=== PATIENT | female | born 1995 | race Caucasian/White ===

== ENCOUNTER 2017-02-09 18:50 | Emergency (ER) | payer BC ==
[~2017-02-09] VITALS: Ht 167.6 cm; Wt 56.6 kg
[2017-02-09 19:27] VITALS: TEMP 36.8; Ht 167.6 cm; Wt 56.6 kg
[2017-02-09] MEDS ORDERED: KETOROLAC TROMETHAMINE 30 MG/ML VIAL IV STA (20:58)
[2017-02-09 21:40] LABS: BASO % 0.2 %; BASO ABS # 0.02 K/uL (0-0.2); COMPLETE YES; EOS % 1.4 %; HEMATOCRIT 40.6 % (37-47); IG% 0.2 %; LYMPH % 29.8 %; LYMPH ABS # 2.73 K/uL (1.2-3.4); MEAN CELL VOLUME 95.1 fL (80-100); MEAN CORPUSCULAR HEMOGLOBIN 32.3 pg (25-34); MEAN PLATELET VOLUME 9.8 fL (7.4-10.4); MONO % 5.5 %; NEUT % 62.9 %; PLATELET COUNT 308 K/uL (130-400); RED BLOOD COUNT 4.27 M/uL (4.2-5.4); WHITE BLOOD COUNT 9.16 K/uL (4.8-10.8)
[2017-02-09 21:47] LABS: MANUAL MICROSCOPIC REQUIRED? NO; REVIEW REQ? NO; URINE APPEARANCE CLEAR (CLEAR); URINE BILIRUBIN NEG (NEG); URINE COLOR YELLOW; URINE NITRITE NEG (NEG); URINE SPECIFIC GRAVITY 1.016 (1.000-1.030); UROBILINOGEN NEG (NEG); ZZUR CULT IF INDIC CLEAN CATCH NO
[2017-02-09 21:53] LABS: CALCIUM 9.7 mg/dl (8.5-10.1); CREATININE 1.05 mg/dl (0.60-1.20); POTASSIUM 3.8 mmol/L (3.5-5.1)
--- NOTE | 2017-02-09 21:54 | DIAGNOSTIC IMAGING REPORT ---
EXAMINATION: PELVIC ULTRASOUND (transabdominal and endovaginal scanning CLINICAL HISTORY: Pelvic pain COMPARISON STUDY: None FINDINGS: The uterus measured 5.9 x 3 x 4 cm. The endometrial stripe measured 5 mm. The right ovary measured 30 x 12 x 19 mm. The left ovary measured 33 x 17 x 20 mm. There is no ultrasonographic evidence of ovarian torsion. It should be noted that ovarian torsion can be present with normal Doppler ultrasonographic findings. There is a small amount of free pelvic fluid, likely physiologic. IMPRESSION: Small amount of free pelvic fluid, likely physiologic. Otherwise normal pelvic ultrasound. Electronically signed by: Osvaldo Rankin M.D. 02/09/2017 9:53 PM Dictated Date/Time: 02/09/2017 9:51 PM
[2017-02-09 21:56] LABS: ALB/GLOB RATIO 1.2 (0.9-2)
[2017-02-09 22:01] LABS: PREG INTERNAL NEGATIVE QC NEG CLEAR BACKGROUND; PREG INTERNAL POSITIVE QC POS CONTROL LINE
--- NOTE | 2017-02-09 22:22 | EMERGENCY ROOM VISIT NOTE ---
History Report prepared by Christiana: Christine Costa Under the Supervision of: Dr. Elian Carpenter M.D. First contact with patient: 20:56 Chief Complaint: ABDOMINAL PAIN Stated Complaint: ABD PAIN Nursing Triage Summary: Patient ambulatory to triage, states "I have really bad stomach pains. I used to get cysts and I think it could be one. The pain started last night and went away. It came back again tonight. The pain is only on my left side." Patient denies any vaginal bleeding or discharge. Patient denies any urinary symptoms. No changes in bowel pattern. History of Present Illness The patient is a 21 year old female who presents to the Emergency Room with complaints of intermittent abdominal pain beginning last night. The patient states that she has a history of ovarian cysts and is concerned today that she may have another. She reports that last night she began to have LLQ pain and it resolved overnight and came back again today. She rates her pain as an 8/10 in severity. The patient complains of bumps in the LLQ that she can feel. She denies any constipation, diarrhea, changes in bowel movements, and urinary symptoms. The patient states that she is on a control pill and does not get her period with this pill. Source of History: patient Onset: last night Position: abdomen (LLQ) Symptom Intensity: 8/10 Timing: intermittent Associated Symptoms: No diarrhea, No urinary symptoms Review of Systems See HPI for pertinent positives & negatives. A total of 10 systems reviewed and were otherwise negative. Past Medical & Surgical Medical Problems: (1) Ovarian cyst Family History No pertinent family history stated. Social History Smoking Status: Never Smoker Marital Status: single Housing Status: lives with roommate Occupation Status: [employer] student Allergies Coded Allergies: Sulfa Antibiotics (Verified Allergy, Mild, Rash, 02/09/17) Physical Exam Vital Signs Date Time Temp Pulse Resp B/P (MAP) Pulse Ox O2 Delivery O2 Flow Rate FiO2 02/09/17 22:29 55 18 105/74 97 02/09/17 19:27 36.8 53 16 124/86 100 Room Air Physical Exam GENERAL: Patient is in no acute distress. HEENT: No acute trauma, normocephalic atraumatic, mucous membranes moist, no nasal congestion, no scleral icterus. NECK: No stridor, no adenopathy, no meningismus, trachea is midline. LUNGS: Clear to auscultation bilaterally, no wheeze, no rhonchi, breath sounds equal. HEART: Without murmurs gallops or rubs, regular rate and rhythm. ABDOMEN: Soft, moderately tender in the LLQ/pelvis, bowel sounds positive, no hernias, no peritonitis. EXTREMITIES: No cyanosis or edema, full range of motion of all the joints without pain or difficulty, no signs for acute trauma. NEUROLOGIC: Oriented x 3, no acute motor or sensory deficits, no focal weakness. SKIN: No rash, no jaundice, no diaphoresis. Medical Decision & Procedures ER Provider Diagnostic Interpretation: Radiology results as stated below per my review and radiologist interpretation: EXAMINATION: PELVIC ULTRASOUND (transabdominal and endovaginal scanning FINDINGS: The uterus measured 5.9 x 3 x 4 cm. The endometrial stripe measured 5 mm. The right ovary measured 30 x 12 x 19 mm. The left ovary measured 33 x 17 x 20 mm. There is no ultrasonographic evidence of ovarian torsion. It should be noted that ovarian torsion can be present with normal Doppler ultrasonographic findings. There is a small amount of free pelvic fluid, likely physiologic. IMPRESSION: Small amount of free pelvic fluid, likely physiologic. Otherwise normal pelvic ultrasound. Electronically signed by: Osvaldo Rankin M.D. 02/09/2017 9:53 PM Dictated Date/Time: 02/09/2017 9:51 PM Laboratory Results 02/09/17 21:23 Red Blood Count 4.27, Mean Corpuscular Volume 95.1, Mean Corpuscular Hemoglobin 32.3, Mean Corpuscular Hemoglobin Concent 34.0, Mean Platelet Volume 9.8, Neutrophils (%) (Auto) 62.9, Lymphocytes (%) (Auto) 29.8, Monocytes (%) (Auto) 5.5, Eosinophils (%) (Auto) 1.4, Basophils (%) (Auto) 0.2, Neutrophils # (Auto) 5.76, Lymphocytes # (Auto) 2.73, Monocytes # (Auto) 0.50, Eosinophils # (Auto) 0.13, Basophils # (Auto) 0.02 02/09/17 21:23 Test 02/09/17 21:10 02/09/17 21:23 Urine Color YELLOW Urine Appearance CLEAR (CLEAR) Urine pH 7.0 (4.5-7.5) Urine Specific [place] 1.016 (1.000-1.030) Urine Protein NEG (NEG) Urine Glucose (UA) NEG (NEG) Urine Ketones TRACE (NEG) Urine Occult Blood NEG (NEG) Urine Nitrite NEG (NEG) Urine Bilirubin NEG (NEG) Urine Urobilinogen NEG (NEG) Urine Leukocyte Esterase NEG (NEG) White Blood Count 9.16 K/uL (4.8-10.8) Red Blood Count 4.27 M/uL (4.2-5.4) Hemoglobin 13.8 g/dL (12.0-16.0) Hematocrit 40.6 % (37-47) Mean Corpuscular Volume 95.1 fL (80-100) Mean Corpuscular Hemoglobin 32.3 pg (25-34) Mean Corpuscular Hemoglobin Concent 34.0 g/dl (32-36) Platelet Count 308 K/uL (130-400) Mean Platelet Volume 9.8 fL (7.4-10.4) Neutrophils (%) (Auto) 62.9 % Lymphocytes (%) (Auto) 29.8 % Monocytes (%) (Auto) 5.5 % Eosinophils (%) (Auto) 1.4 % Basophils (%) (Auto) 0.2 % Neutrophils # (Auto) 5.76 K/uL (1.4-6.5) Lymphocytes # (Auto) 2.73 K/uL (1.2-3.4) Monocytes # (Auto) 0.50 K/uL (0.11-0.59) Eosinophils # (Auto) 0.13 K/uL (0-0.5) Basophils # (Auto) 0.02 K/uL (0-0.2) RDW Standard Deviation 45.1 fL (36.4-46.3) RDW Coefficient of Variation 13.0 % (11.5-14.5) Immature Granulocyte % (Auto) 0.2 % Immature Granulocyte # (Auto) 0.02 K/uL (0.00-0.02) Anion Gap 9.0 mmol/L (3-11) Est Creatinine Clear Calc Drug Dose 76.4 ml/min Estimated GFR () 88.5 Estimated GFR (Non- 76.4 BUN/Creatinine Ratio 12.0 (10-20) Calcium Level 9.7 mg/dl (8.5-10.1) Total Bilirubin 1.8 mg/dl (0.2-1) Aspartate Amino Transf (AST/SGOT) 21 U/L (15-37) Alanine Aminotransferase (ALT/SGPT) 18 U/L (12-78) Alkaline Phosphatase 51 U/L (45-117) Total Protein 8.1 gm/dl (6.4-8.2) Albumin 4.5 gm/dl (3.4-5.0) Globulin 3.6 gm/dl (2.5-4.0) Albumin/Globulin Ratio 1.2 (0.9-2) Lipase 97 U/L (73-393) Human Chorionic Gonadotropin, Qual NEG (NEG) Laboratory results reviewed by me. Medications Administered Medications (Trade) Dose Ordered Sig/Jemima Route Start Time Stop Time Status Last Admin Dose Admin Ketorolac Tromethamine (Toradol Inj) 30 mg NOW STAT IV 02/09/17 20:58 02/09/17 21:06 DC 02/09/17 21:18 30 MG ED Course 2055: The patient was evaluated in room B9. A complete history and physical exam was performed. 2057: Toradol Inj 30mg IV. 2222: I reevaluated and updated the patient. 2228: Reevaluated the patient. Discussed results and discharge instructions: She verbalized understanding and agreement. The patient is ready for discharge. Medical Decision The patient is a 21 year old female who presents to the ED with complaints of LLQ abdominal pain. Differential diagnoses considered include ovarian cyst, ruptured ovarian cyst, ovarian torsion, constipation, hernia, UTI, , bowel obstruction, musculoskeletal pain. There is no leukocytosis or concerning anemia. No significant electrolyte abnormality, kidney failure, hepatitis or pancreatitis. testing is negative. Urinalysis does not show evidence for infection. Pelvic ultrasound does not show any evidence for ovarian torsion or large ovarian cyst. Some free pelvic fluid was seen. On exam, the patient was not toxic or febrile. There was no obvious hernia, there was no peritonitis. The patient denies any vaginal discharge or vaginal complaints. Patient has a history of ovarian cyst. Her pain today felt similar to previous cysts. Certainly, she may have ruptured an ovarian cyst this evening. I do think the patient is stable for discharge. During her ER stay, she received IV Toradol for pain. She will be discharged with [id number] Motrin and Tylenol. She will follow with OB. If things are worsening, she can return. Medication Reconcilliation Current Medication List: was personally reviewed by me Blood Pressure Screening Patient's blood pressure: Normal blood pressure Blood pressure disposition: Did not require urgent referral Impression Primary Impression: Pelvic pain Scribe Attestation The scribe's documentation has been prepared under my direction and personally reviewed by me in its entirety. I confirm that the note above accurately reflects all work, treatment, procedures, and medical decision making performed by me. Departure Information Dispostion Home / Self-Care Referrals Ulices López D.O. (PCP) Patient Instructions My [facility] Additional Instructions motrin 3-4 tab every 8 hours for pain may use tylenol as well for pain control heat to the area may help talk with ob about today's visit return for uncontrolled pain, vomiting or fever
[2017-02-09 22:29] VITALS: BP 105/74; PULSE 55; O2SAT 97
== END 2017-02-09 22:30 | disposition home or self-care (01) ==
LOC: C.EDB 18:51
DX: R10.2 Pelvic and perineal pain (principal); N83.209 Unspecified ovarian cyst, unspecified side; Z88.2 Allergy status to sulfonamides

== ENCOUNTER 2017-03-28 00:12 | Emergency (ER) | payer BC ==
[~2017-03-28] VITALS: Ht 180.3 cm; Wt 59.9 kg
[2017-03-28 00:19] VITALS: TEMP 36.5; Ht 180.3 cm; Wt 59.9 kg
--- NOTE | 2017-03-28 00:22 | EMERGENCY ROOM VISIT NOTE ---
History Report prepared by Christiana: Néstor Feng Under the Supervision of: Dr. Malena Christiansen D.O. First contact with patient: 00:15 Stated Complaint: ALCOHOL History of Present Illness The patient is a 21 year old female who presents to the Emergency Room via EMS with complaints of an alcohol overdose that began recently. EMS states that the patient drank hard liquor but does not know how much. EMS adds that the patient was found wondering alone. Patient denies any body aches. She denies using drug recently. She denies any history of heart problems or seizures. Patient states that she lives in [place], [place]. Source of History: patient Onset: Recent Position: other (Global) Modifying Factors (Relieving): other (None) Note: Patient denies body aches. Review of Systems See HPI for pertinent positives & negatives. A total of 10 systems reviewed and were otherwise negative. Past Medical & Surgical Medical Problems: (1) Ovarian cyst Family History No pertinent family medical history. Social History Smoking Status: Never Smoker Marital Status: single Housing Status: lives with roommate Occupation Status: [employer] student Current/Historical Medications No Active Prescriptions or Reported Meds Allergies Coded Allergies: Sulfa Antibiotics (Verified Allergy, Mild, Rash, 03/28/17) Physical Exam Vital Signs Date Time Temp Pulse Resp B/P (MAP) Pulse Ox O2 Delivery O2 Flow Rate FiO2 03/28/17 03:46 77 16 103/71 97 Room Air 03/28/17 02:53 79 18 108/74 98 Room Air 03/28/17 01:07 92 18 114/82 97 Room Air 03/28/17 00:19 36.5 100 20 127/81 99 Room Air Physical Exam General: Tearful, smells of alcohol and cooperative HEENT: Head - normocephalic and atraumatic Pupils are 7mm, equal, round, and slow to react to light. Extraocular eye muscles are intact, and sclera are anicteric. Nose - moist nasal mucosa without discharge. Mouth - moist buccal mucosa. Oropharynx is nonerythematous and there is no tonsillar exudate or edema noted. Neck: Supple; no JVD, nuchal rigidity, cervical lymphadenopathy. Heart: Tachycardic rate and rhythm. There is a normal S1 and S2 with no murmurs , clicks, or gallops appreciated. Lungs: Clear to auscultation bilaterally with no wheezes, rales, or rhonchi. Abdomen: Soft, completely nontender, nondistended, with good bowel sounds. There are no palpable pulsatile masses or hepatosplenomegaly. There is no guarding, rigidity, or rebound noted. Extremities: No evidence of cyanosis, clubbing, or edema. There are easily palpable peripheral pulses. Skin: warm and dry with good turgor and no rashes. Medical Decision & Procedures Laboratory Results 03/28/17 00:30 Test 03/28/17 00:30 Anion Gap 6.0 mmol/L (3-11) Est Creatinine Clear Calc Drug Dose 87.5 ml/min Estimated GFR () 97.4 Estimated GFR (Non- 84.1 BUN/Creatinine Ratio 7.8 (10-20) Calcium Level 8.7 mg/dl (8.5-10.1) Ethyl Alcohol mg/dL 299.0 mg/dl (0-3) Laboratory results per my review. ED Course 0008: The patient was evaluated in room B12B. A complete history and physical examination were performed. Nursing notes and previous electronic medical records were reviewed. The patient was placed on the sales representative sales manager and pulse oximeter. Laboratory studies were drawn as above. 0350: Upon reevaluation, the patient is awake and alert. She states she feels fine and was able to eat pizza. I discussed findings and results with her. She verbalized agreement of the treatment plan. She was discharged home. Medical Decision The patient is a 21 year old female who presents to the ED with a recent alcohol overdose. Differential diagnosis includes alcohol overdose, drug intoxication, hypoglycemia, and head injury. Lab results show normal renal function and glucose, alcohol = 299. This is a 21-year-old female patient who was brought to the emergency department after consuming too much alcohol. Laboratory studies were normal except for alcohol. The patient was cooperative throughout her stay here in the emergency department. She was able to rest and and talk with friends and eat pizza without any difficulty. She was encouraged to avoid such excessive alcohol use in the future. Medication Reconcilliation Current Medication List: was personally reviewed by me Blood Pressure Screening Patient's blood pressure: Normal blood pressure Blood pressure disposition: Did not require urgent referral Impression Primary Impression: Alcohol overdose Scribe Attestation The scribe's documentation has been prepared under my direction and personally reviewed by me in its entirety. I confirm that the note above accurately reflects all work, treatment, procedures, and medical decision making performed by me. Departure Information Dispostion Home / Self-Care Prescriptions No Active Prescriptions or Reported Meds Referrals Ulices López D.O. (PCP) Forms HOME CARE DOCUMENTATION FORM, IMPORTANT VISIT INFORMATION Patient Instructions ED Overdose Alcohol, [facility]: [employer] Students and Alcohol Related Visits, My [facility] Additional Instructions Avoid such excessive alcohol use in the future Rest. anna a bland diet and plenty of clear liquids Use tylenol for headaches Problem Qualifiers Primary Impression: Alcohol overdose Encounter type: initial encounter Injury intent: accidental or unintentional Qualified Codes: T51.91XA - Toxic effect of unspecified alcohol , accidental (unintentional), initial encounter
[2017-03-28 01:03] LABS: CALCIUM 8.7 mg/dl (8.5-10.1); CREATININE 0.97 mg/dl (0.60-1.20); POTASSIUM 3.6 mmol/L (3.5-5.1)
[2017-03-28 03:46] VITALS: BP 103/71; PULSE 77; O2SAT 97
== END 2017-03-28 03:55 | disposition home or self-care (01) ==
LOC: EDBD 00:12 → C.EDB 00:14
DX: F10.929 Alcohol use, unspecified with intoxication, unspecified (principal); Y90.8 Blood alcohol level of 240 mg/100 ml or more; R00.0 Tachycardia, unspecified

== ENCOUNTER 2017-11-03 18:35 | Emergency (ER) | payer BC ==
[~2017-11-03] VITALS: Ht 167.6 cm; Wt 57.0 kg
[2017-11-03 18:37] VITALS: TEMP 37.1; Ht 167.6 cm; Wt 57.0 kg
[2017-11-03] MEDS ORDERED: ONDANSETRON INJ 2 MG/ML 2 ML VIAL IV STA (18:51)
[2017-11-03] MEDS ORDERED: SODIUM CHLORIDE 0.9% 1000ML 2,000 ML IV STA (18:51)
[2017-11-03] MEDS ORDERED: KETOROLAC TROMETHAMINE 30 MG/ML VIAL IV STA (18:51)
[2017-11-03] MEDS ORDERED: OPTIRAY 320 IV PRN (19:00)
[2017-11-03 19:45] LABS: BASO % 0.4 %; BASO ABS # 0.03 K/uL (0-0.2); EOS % 2.6 %; HEMOGLOBIN 15.1 g/dL (12.0-16.0); IG# 0.02 K/uL (0.00-0.02); LYMPH % 34.2 %; LYMPH ABS # 2.61 K/uL (1.2-3.4); MEAN CELL VOLUME 94.6 fL (80-100); MEAN CORPUSCULAR HEMOGLOBIN 32.5 pg (25-34); MEAN CORPUSCULAR HGB CONC 34.3 g/dl (32-36); MONO % 6.7 %; MONO ABS # 0.51 K/uL (0.11-0.59); NEUT % 55.8 %; NEUT ABS # 4.27 K/uL (1.4-6.5); PLATELET COUNT 360 K/uL (130-400); RED CELL DISTRIBUTION WIDTH CV 13.6 % (11.5-14.5); RED CELL DISTRIBUTION WIDTH SD 46.6 fL (36.4-46.3); WHITE BLOOD COUNT 7.64 K/uL (4.8-10.8)
[2017-11-03 20:36] LABS: ALBUMIN 4.7 gm/dl (3.4-5.0); CREATININE 1.05 mg/dl (0.60-1.20); TOTAL PROTEIN 9.3 gm/dl (6.4-8.2)
[2017-11-03 21:21] LABS: POTASSIUM 4.1 mmol/L (3.5-5.1)
--- NOTE | 2017-11-03 21:33 | DIAGNOSTIC IMAGING REPORT ---
CT ABD/PELVIS IV CONTRAST ONLY CLINICAL HISTORY: DIFFUSE ABD PAIN COMPARISON STUDY: Pelvic ultrasound dated 02/09/2017 TECHNIQUE: Following the IV administration of 113 mL of Optiray-320, CT scan of the abdomen and pelvis was performed from the lung bases to the proximal femurs. Images are reviewed in the axial, sagittal, and coronal planes. IV contrast was administered without complication. A dose lowering technique was utilized adhering to the principles of ALARA. CT DOSE: 273.09 mGy.cm FINDINGS: Lower chest: The heart is normal in size and configuration, without pericardial effusion. The lung bases and pleural spaces are clear. Liver: There is minimal periportal edema, likely secondary to hydration Gallbladder: Unremarkable. Spleen: Normal in size and attenuation. Pancreas: Unremarkable. Adrenal glands: Unremarkable. Kidneys: There is symmetric renal cortical enhancement. The kidneys are normal in size without hydronephrosis. Bowel: There are no transition zones indicate bowel obstruction. There are multiple fluid-filled small bowel and colonic loops. This finding can be seen in an enteritis. There is no acute diverticulitis. The appendix is not visualized with certainty this examination performed without the benefit of oral contrast. Peritoneum: There is a small amount of free pelvic fluid. Vasculature: The abdominal aorta is normal in course and caliber. Adenopathy: None. Pelvic viscera: The bladder, and pelvic viscera are unremarkable. Skeletal structures: No destructive osseous lesions are seen. IMPRESSION: 1. No evidence of bowel obstruction. No evidence of free air 2. Fluid-filled colonic and small bowel loops with air-fluid levels. Likely diagnostic considerations include a generalized ileus versus enteritis. 3. Small amount of free pelvic fluid Electronically signed by: Osvaldo Rankin M.D. 11/03/2017 9:32 PM Dictated Date/Time: 11/03/2017 9:26 PM
[2017-11-03 22:10] VITALS: BP 100/62; PULSE 51; O2SAT 100
--- NOTE | 2017-11-03 22:30 | EMERGENCY ROOM VISIT NOTE ---
History Report prepared by Christiana: Kassy Weems Under the Supervision of: Dr. Marshal Klein D.O. 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 She states when her pain first began, it was intermittent, however over the past week it has been constant. She describes her pain as sharp and notes nothing makes her pain better or worse. She reports yesterday she went to [facility] and had x-rays done which showed extreme constipation, so she took some laxatives but it did not alleviate her pain. Her last BM before the laxatives was 2 weeks but she was passing very small movements during this time and her last BM after the laxatives was last night. Pt denies headache, change in vision, fevers, chest pain, shortness of breath, nausea, vomiting, diarrhea, pain with urination, melena, vaginal bleeding or discharge. 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 A total of 10 systems reviewed and were otherwise negative. Past Medical & Surgical Medical Problems: (1) Ovarian cyst Family History No pertinent family history Social History Smoking Status: Never Smoker Marital Status: single Housing Status: lives with roommate Occupation Status: [employer] student Current/Historical Medications No Active Prescriptions or Reported Meds Allergies Coded Allergies: Sulfa Antibiotics (Verified Allergy, Mild, Rash, 03/28/17) Physical Exam Vital Signs Date Time Temp Pulse Resp B/P (MAP) Pulse Ox O2 Delivery O2 Flow Rate FiO2 11/03/17 22:10 51 18 100/62 100 11/03/17 21:48 51 18 100/62 100 Room Air 11/03/17 20:01 50 18 104/74 100 Room Air 11/03/17 18:37 37.1 77 20 114/82 100 Room Air Physical Exam GENERAL: Sitting up in bed, alert, well appearing, well nourished, no distress, non-toxic EYE EXAM: normal conjunctiva. OROPHARYNX: no exudate, no erythema, lips, buccal mucosa, and tongue normal and mucous membranes are moist NECK: supple, no nuchal rigidity, no adenopathy, non-tender LUNGS: Clear to auscultation. Normal chest wall mechanics HEART: no murmurs, S1 normal and S2 normal ABDOMEN: abdomen soft, faint diffuse tenderness, normo-active bowel sounds, no masses, no rebound or guarding. BACK: Back is symmetrical on inspection and there is no deformity, no midline tenderness, no CVA tenderness. SKIN: no rashes and no bruising UPPER EXTREMITIES: upper extremities are grossly normal. LOWER EXTREMITIES: No pitting edema. Calves are equal bilaterally NEURO EXAM: Normal sensorium, cranial nerves II-XII grossly intact, normal speech, no gross weakness of arms, no gross weakness of legs. Medical Decision & Procedures ER Provider Diagnostic Interpretation: Radiology results as stated below per my review and the radiologist's interpretation: CT ABD/PELVIS IV CONTRAST ONLY CLINICAL HISTORY: DIFFUSE ABD PAIN COMPARISON STUDY: Pelvic ultrasound dated 02/09/2017 TECHNIQUE: Following the IV administration of 113 mL of Optiray-320, CT scan of the abdomen and pelvis was performed from the lung bases to the proximal femurs. Images are reviewed in the axial, sagittal, and coronal planes. IV contrast was administered without complication. A dose lowering technique was utilized adhering to the principles of ALARA. CT DOSE: 273.09 mGy.cm FINDINGS: Lower chest: The heart is normal in size and configuration, without pericardial effusion. The lung bases and pleural spaces are clear. Liver: There is minimal periportal edema, likely secondary to hydration Gallbladder: Unremarkable. Spleen: Normal in size and attenuation. Pancreas: Unremarkable. Adrenal glands: Unremarkable. Kidneys: There is symmetric renal cortical enhancement. The kidneys are normal in size without hydronephrosis. Bowel: There are no transition zones indicate bowel obstruction. There are multiple fluid-filled small bowel and colonic loops. This finding can be seen in an enteritis. There is no acute diverticulitis. The appendix is not visualized with certainty this examination performed without the benefit of oral contrast. Peritoneum: There is a small amount of free pelvic fluid. Vasculature: The abdominal aorta is normal in course and caliber. Adenopathy: None. Pelvic viscera: The bladder, and pelvic viscera are unremarkable. Skeletal structures: No destructive osseous lesions are seen. IMPRESSION: 1. No evidence of bowel obstruction. No evidence of free air 2. Fluid-filled colonic and small bowel loops with air-fluid levels. Likely diagnostic considerations include a generalized ileus versus enteritis. 3. Small amount of free pelvic fluid Electronically signed by: Osvaldo Rankin M.D. 11/03/2017 9:32 PM Laboratory Results 11/03/17 19:12 Red Blood Count 4.65, Mean Corpuscular Volume 94.6, Mean Corpuscular Hemoglobin 32.5, Mean Corpuscular Hemoglobin Concent 34.3, Mean Platelet Volume 10.0, Neutrophils (%) (Auto) 55.8, Lymphocytes (%) (Auto) 34.2, Monocytes (%) (Auto) 6.7, Eosinophils (%) (Auto) 2.6, Basophils (%) (Auto) 0.4, Neutrophils # (Auto) 4.27, Lymphocytes # (Auto) 2.61, Monocytes # (Auto) 0.51, Eosinophils # (Auto) 0.20, Basophils # (Auto) 0.03 11/03/17 19:12 11/03/17 20:48 Test 11/03/17 19:10 11/03/17 19:12 11/03/17 20:48 Urine Color YELLOW Urine Appearance CLEAR (CLEAR) Urine pH 7.5 (4.5-7.5) Urine Specific [place] 1.009 (1.000-1.030) Urine Protein NEG (NEG) Urine Glucose (UA) NEG (NEG) Urine Ketones NEG (NEG) Urine Occult Blood NEG (NEG) Urine Nitrite NEG (NEG) Urine Bilirubin NEG (NEG) Urine Urobilinogen NEG (NEG) Urine Leukocyte Esterase TRACE (NEG) Urine WBC (Auto) 1-5 /hpf (0-5) Urine RBC (Auto) 0-4 /hpf (0-4) Urine Hyaline Casts (Auto) 0 /lpf (0-5) Urine Epithelial Cells (Auto) 10-20 /lpf (0-5) Urine Bacteria (Auto) NEG (NEG) Urine Test NEG (NEG) White Blood Count 7.64 K/uL (4.8-10.8) Red Blood Count 4.65 M/uL (4.2-5.4) Hemoglobin 15.1 g/dL (12.0-16.0) Hematocrit 44.0 % (37-47) Mean Corpuscular Volume 94.6 fL (80-100) Mean Corpuscular Hemoglobin 32.5 pg (25-34) Mean Corpuscular Hemoglobin Concent 34.3 g/dl (32-36) Platelet Count 360 K/uL (130-400) Mean Platelet Volume 10.0 fL (7.4-10.4) Neutrophils (%) (Auto) 55.8 % Lymphocytes (%) (Auto) 34.2 % Monocytes (%) (Auto) 6.7 % Eosinophils (%) (Auto) 2.6 % Basophils (%) (Auto) 0.4 % Neutrophils # (Auto) 4.27 K/uL (1.4-6.5) Lymphocytes # (Auto) 2.61 K/uL (1.2-3.4) Monocytes # (Auto) 0.51 K/uL (0.11-0.59) Eosinophils # (Auto) 0.20 K/uL (0-0.5) Basophils # (Auto) 0.03 K/uL (0-0.2) RDW Standard Deviation 46.6 fL (36.4-46.3) RDW Coefficient of Variation 13.6 % (11.5-14.5) Immature Granulocyte % (Auto) 0.3 % Immature Granulocyte # (Auto) 0.02 K/uL (0.00-0.02) Anion Gap 8.0 mmol/L (3-11) Est Creatinine Clear Calc Drug Dose 76.3 ml/min Estimated GFR () 87.9 Estimated GFR (Non- 75.9 BUN/Creatinine Ratio 7.3 (10-20) Calcium Level 10.0 mg/dl (8.5-10.1) Total Bilirubin 1.5 mg/dl (0.2-1) Alanine Aminotransferase (ALT/SGPT) 24 U/L (12-78) Alkaline Phosphatase 42 U/L (45-117) Total Protein 9.3 gm/dl (6.4-8.2) Albumin 4.7 gm/dl (3.4-5.0) Lipase 102 U/L (73-393) Direct Bilirubin mg/dl (0-0.2) Aspartate Amino Transf (AST/SGOT) 18 U/L (15-37) Chemistry Specimen Hemolysis Laboratory results per my review. Medications Administered Medications (Trade) Dose Ordered Sig/Jemima Route Start Time Stop Time Status Last Admin Dose Admin Sodium Chloride 2,000 ml @ 999 mls/hr Q2H1M STAT IV 11/03/17 18:51 11/03/17 20:51 DC 11/03/17 19:18 999 MLS/HR Ondansetron HCl (Zofran Inj) 4 mg NOW STAT IV 11/03/17 18:51 11/03/17 18:52 DC 11/03/17 19:18 4 MG Ketorolac Tromethamine (Toradol Inj) 30 mg NOW STAT IV 11/03/17 18:51 11/03/17 18:52 DC 11/03/17 19:18 30 MG ED Course ED COURSE: Vital signs were reviewed and showed normotensive The patients medical record was reviewed The above diagnostic studies were performed and reviewed. ED treatments and interventions as stated above. 1840: The patient was evaluated in room C11. A complete history and physical examination was performed. 1850: Ordered Toradol Inj 30 mg IV, Zofran Inj 4 mg IV, Sodium Chloride 2000 ml @ 999 mls/hr IV 2158: Upon reevaluation, the patient is feeling better. I discussed my findings with the patient and she understands and agrees with the treatment plan. Based on the patients age, coexisting illnesses, exam and lab findings the decision to treat as an outpatient was made. The patient remained stable while under my care. The patient appeared well at the time of discharge. Medical Decision Differential diagnoses includes but is not limited to gastritis, peptic ulcer disease, GERD, gallbladder disease, pancreatitis, small bowel obstruction, acute coronary syndrome, pericarditis, ischemic bowel, irritable bowel disease, irritable bowel syndrome, appendicitis, diverticulitis, malignancy, hernia, urinary tract infection, torsion, [/ectopic (if female)], perforation, trauma, infectious. Patient is a 22-year-old who presents the ER for diffuse abdominal pain. She notes she has been having very irregular bowel movements per she notes her last bowel movement was close to 2 weeks ago although she has had small hard bowel movements. Her abdominal exam is completely benign. CBC along with BMP, LFTs, bilirubin and lipase was remarkable for a bilirubin 1.5. UA was negative. was negative. CT abdomen pelvis shows questionable ileus. Patient did take a Dulcolax and had a small bowel movement. With her unremarkable workup and belly pain did recommend MiraLAX bowel prep. Patient was discharged to follow-up with PCP as an outpatient. Discussed with Pt concerning signs and symptoms to watch out for. Pt was instructed to follow up with their PCP and discussed with the patient their option to return to the ED at anytime for persistent or worsening symptoms. The appropriate anticipatory guidance and out- patient management, including indications for return to the emergency department , were explained at length to the patient and understood. Medication Reconcilliation Current Medication List: was personally reviewed by me Blood Pressure Screening Patient's blood pressure: Normal blood pressure Blood pressure disposition: Did not require urgent referral Impression Primary Impression: Abdominal pain Scribe Attestation The scribe's documentation has been prepared under my direction and personally reviewed by me in its entirety. I confirm that the note above accurately reflects all work, treatment, procedures, and medical decision making performed by me. Departure Information Dispostion Home / Self-Care Prescriptions No Active Prescriptions or Reported Meds Referrals Ulices López D.O. (PCP) Forms HOME CARE DOCUMENTATION FORM, IMPORTANT VISIT INFORMATION Patient Instructions [facility] Additional Instructions Please follow up with your primary care doctor or if you are a student, [facility] with in the next 24 hours. Any worsening of your symptoms, please return to the ED immediately. This includes any fevers greater than 100.4, worsening pain, chest pain, shortness breath, persistent nausea, vomiting, unable to eat or drink, or any other concerning signs or symptoms from your standpoint. Please take 250 g bottle of MiraLAX and mixed with 64 ounces of Gatorade. Please drink 8 ounces every 15 minutes until he started having bowel movements. At this time she will have loose watery stools. If you go through the whole bottle you can repeat this once. Problem Qualifiers Primary Impression: Abdominal pain Abdominal location: unspecified location Qualified Codes: R10.9 - Unspecified abdominal pain
== END 2017-11-03 22:09 | disposition home or self-care (01) ==
LOC: C.EDB 18:36 → C.EDC 22:09
DX: R10.9 Unspecified abdominal pain (principal); Z88.2 Allergy status to sulfonamides